=== PATIENT | female | born 1970 | race Caucasian/White ===

== ENCOUNTER 2019-08-31 11:39 | Emergency (ER) | payer MEDICAID ==
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
[2019-08-31] MEDS ORDERED: Lidocaine 2% Viscous Solution 15 ML Cup PO ONE (12:39)
[2019-08-31] MEDS ORDERED: Benzocaine 20% Topical Spray UD MUCMEM ONE (12:39)
== END 2019-08-31 12:58 | disposition home or self-care (01) ==
LOC: MW.ED 11:39
DX: K04.7 Periapical abscess without sinus (principal); Z88.0 Allergy status to penicillin; Z88.1 Allergy status to other antibiotic agents; Z88.5 Allergy status to narcotic agent; Z88.6 Allergy status to analgesic agent
CPT/HCPCS: 99282; A9270